=== PATIENT | female | born 1955 ===

== ENCOUNTER → 2021-04-04 | Day surgery (SDC) | payer BC ==
[~2021-04-04] VITALS: Ht 157.5 cm; Wt 56.8 kg
[~2021-04-04] MED LIST: FLOMAX 0.40.4 MG/CAP PO; PRINZIDE 25 MG-1 TAB PO
[2021-04-04 11:57] VITALS: BP 157/82; PULSE 88; TEMP 98.1
[2021-04-04 13:25] VITALS: BP 136/73; PULSE 83
--- NOTE | 2021-04-04 13:25 | NUR ---
Patient returns to room 2 per cart from PACU accompanied by Zohreh RN and is awake and alert. IV fluids infusing and site is free of redness. Temp 97.3 and room air sats 95%. Siderails up x2 and call light in reach. Daughter in room. Allowed to rest. Denies need for pain medicaitons.
[2021-04-04 13:40] VITALS: BP 134/77; PULSE 76
--- NOTE | 2021-04-04 13:40 | NUR ---
Patient is eating crackers and peanut butter and sipping on water. Continues to deny pain or nausea. Room air sats 96%. String from stent is taped to lower abdomen.
[2021-04-04 13:55] VITALS: BP 134/70; PULSE 72
--- NOTE | 2021-04-04 13:55 | NUR ---
Resting and eating snack. Offers no complaints. Talking with daughter.
[2021-04-04 14:10] VITALS: BP 131/72; PULSE 77
--- NOTE | 2021-04-04 14:10 | NUR ---
Room air sats 97%. Continues to deny pain or nausea.
--- NOTE | 2021-04-04 14:14 | NUR ---
Assisted up to the bathroom. IV to INT. Gait steady with one person assist. String from stent remains taped to abdomen. Voids pink tinged urine and returns to room.
--- NOTE | 2021-04-04 14:55 | NUR ---
INT needle discontinued and site is free of redness. Given dismissal instructions and voices understanding of these.
--- NOTE | 2021-04-04 14:58 | NUR ---
Patient dismissed to home driven by daughter and taken to the front door per wheelchair and assisted into vehicle by Noris MARIO with dismissal instructions in hand. Provided office number for questions and concerns.
[2021-04-04 15:53] VITALS: BP 132/75; PULSE 77; TEMP 98.5
== END ==
LOC: SDCO 09:16
DX: N20.2 Calculus of kidney with calculus of ureter (principal); D72.829 Elevated white blood cell count, unspecified
CPT/HCPCS: C1769; C2617; J0690; J2405; J2704; J3010; Q9967